=== PATIENT | female | born 1985 | race Caucasian/White ===

== ENCOUNTER 2018-01-07 17:22 | Emergency (ER) | END 2018-01-07 23:30 | disposition home or self-care (01) ==

== ENCOUNTER 2018-01-15 08:30 | Emergency (ER) | END 2018-01-15 12:41 | disposition home or self-care (01) ==

== ENCOUNTER 2018-03-12 15:33 | Emergency (ER) | END 2018-03-12 17:51 | disposition home or self-care (01) ==

== ENCOUNTER 2018-07-21 22:37 | Emergency (ER) | payer OTHER ==
[~2018-07-21] VITALS: Ht 167.6 cm; Wt 70.9 kg
[2018-07-21 22:46] VITALS: Ht 167.6 cm; Wt 70.9 kg
[2018-07-22] MEDS ORDERED: LORAZEPAM 2 MG INJ IM ONE (00:30)
--- NOTE | 2018-07-22 01:01 | ERD ---
ER Documentation Chief Complaint Chief Complaint withdrawing fr alcohol. last drink vodka 18hrs ago. HPI This is a very pleasant 32-year-old female withdrawing from alcohol. She said her last unremarkable 18 hours ago. Denies fevers chills nausea vomiting. Denies any auditory or visual hallucinations. Denies any other current issues. ROS All systems reviewed and are negative except as per history of present illness. Medications Home Meds No Active Prescriptions or Reported Meds Allergies Allergies: Coded Allergies: No Known Allergy (Unverified , 07/21/18) PMhx/Soc History of Surgery: Yes (CAUDA EQUINA SURGERY (02/2018)) Anesthesia Reaction: No Hx Neurological Disorder: Yes (SEIZURES) Hx Miscellaneous Medical Probl: Yes (ETOH ABUSE) Hx Alcohol Use: Yes (12beers/day [id number]; RECENT USE 12HRS AGO (07/21/18)) Hx Substance Use: Yes (cocaine 07/20/18) Hx Tobacco Use: Yes (5 cigs/ day) Smoking Status: Current every day smoker Physical Exam Vitals Vital Signs Date Temp Pulse Resp B/P (MAP) Pulse Ox O2 O2 Flow FiO2 Time Delivery Rate 07/21/18 98.0 116 20 166/92 98 22:46 (116) Physical Exam Const: No acute distress Head: Atraumatic Eyes: Normal Conjunctiva ENT: Normal External Ears, Nose and Mouth. Neck: Full range of motion. No meningismus. Resp: Clear to auscultation bilaterally Cardio: Regular rate and rhythm, no murmurs Abd: Soft, non tender, non distended. Normal bowel sounds Skin: No petechiae or rashes Back: No midline or flank tenderness Ext: No cyanosis, or edema Neur: Awake and alert Psych: Normal Mood and Affect Results 24 hrs Current Medications Medications Dose Sig/Piotr Start Time Status Last (Trade) Ordered Route PRN Stop Time Admin Dose Reason Admin Lorazepam 2 mg ONCE ONCE 07/22/18 DC 07/22/18 (Ativan) IM 00:30 07/22/18 00:18 00:31 Procedures/MDM Medical decision makin female with alcohol withdrawal. Treated with Ativan with good response. Patient is following up with [facility] tomorrow. At this point she is currently stable for outpatient management. Departure Diagnosis: Primary Impression: Alcohol withdrawal syndrome Complication of substance-induced condition: with unspecified complication Qualified Codes: F10.239 - Alcohol dependence with withdrawal, unspecified Condition: Stable Patient Instructions: Alcohol Withdrawal ERYN DE SOUZA Jul 22, 2018 01:01
[2018-07-22 02:53] VITALS: BP 92/58; PULSE 85; RESP 16
== END 2018-07-22 04:05 | disposition home or self-care (01) ==
LOC: E/R 22:37
DX: F10.239 Alcohol dependence with withdrawal, unspecified (principal); F17.210 Nicotine dependence, cigarettes, uncomplicated
CPT/HCPCS: 96372; J2060; Z7502

== ENCOUNTER 2018-12-04 14:29 | Emergency (ER) | payer OTHER ==
[~2018-12-04] VITALS: Wt 71.4 kg
[2018-12-04 14:33] VITALS: BP 118/70; PULSE 102; RESP 20
[2018-12-04] MEDS ORDERED: HYDROCODONE/APAP (5/325) TAB PO ONE (16:00)
[2018-12-04] MEDS ORDERED: morphine 4 MG/ML VIAL IM STA (16:31)
[2018-12-04] MEDS ORDERED: ONDANSETRON (ODT) 4 MG TAB ODT STA (17:49)
[2018-12-04] MEDS ORDERED: CYCL10TA7 PO (18:07)
[2018-12-04] MEDS ORDERED: NAPR-985 PO (18:07)
--- NOTE | 2018-12-04 20:16 | ERD ---
ER Documentation Chief Complaint Chief Complaint LOW BACK PAIN RADIATING TO RIGHT LEG FOR A FEW DAYS NO TRAUMA. CHRONIC HPI 33-year-old female with past medical history of cauda equina presenting to the emergency department with complaints of severe right-sided low back pain with radiation down her right leg which began after lifting a heavy object earlier today. She also reports 2 episodes of bladder incontinence. Pain is rated 10/10 in severity. She took no medication for relief of symptoms. Her pain is worse with walking. She states her symptoms feel similar to when she was diagnosed with cauda equina in the past. She denies any fevers, chills, or other symptoms at this time. ROS All systems reviewed and are negative except as per history of present illness. Medications Home Meds Active Scripts Cyclobenzaprine Hcl* (Cyclobenzaprine Hcl*) 10 Mg Tablet, 10 MG PO TID, #15 TAB Prov:ERYN MCKENZIE PA-C 12/04/18 Naproxen* (Naprosyn*) 500 Mg Tablet, 500 MG PO BID PRN for PAIN AND/OR IN FLAMMATION, #30 TAB Prov:ERYN MCKENZIE PA-C 12/04/18 Allergies Allergies: Coded Allergies: No Known Allergy (Unverified , 07/21/18) PMhx/Soc History of Surgery: Yes (CAUDA EQUINA SURGERY (02/2018)) Anesthesia Reaction: No Hx Neurological Disorder: Yes (SEIZURES) Hx Miscellaneous Medical Probl: Yes (ETOH ABUSE) Hx Alcohol Use: Yes (12beers/day [id number]; RECENT USE 12HRS AGO (07/21/18)) Hx Substance Use: Yes (cocaine 07/20/18) Hx Tobacco Use: Yes (5 cigs/ day) Smoking Status: Current every day smoker FmHx Family History: No diabetes Physical Exam Vitals Vital Signs Date Temp Pulse Resp B/P (MAP) Pulse Ox O2 O2 Flow FiO2 Time Delivery Rate 12/04/18 97.6 102 20 118/70 98 14:33 (86) Physical Exam Const: No acute distress Head: Atraumatic Eyes: Normal Conjunctiva ENT: Normal External Ears, Nose and Mouth. Neck: Full range of motion. No meningismus. Resp: Clear to auscultation bilaterally Cardio: Regular rate and rhythm, no murmurs Skin: No petechiae or rashes Back: . Tenderness palpation of the paraspinal muscles of the lumbar spine on the right. Ext: No cyanosis, or edema. Patient is neurovascularly intact to bilateral lower extremities. Neur: Awake and alert Psych: Normal Mood and Affect Results 24 hrs Current Medications Medications Dose Sig/Piotr Start Time Status Last (Trade) Ordered Route PRN Stop Time Admin Dose Reason Admin 1 tab ONCE ONCE 12/04/18 DC 12/04/18 Acetaminophen PO 16:00 16:00 / 12/04/18 16:01 Hydrocodone Bitart (Newhall (5/325)) Morphine 4 mg ONCE STAT 12/04/18 DC 12/04/18 Sulfate IM 16:31 16:36 (morphine) 12/04/18 16:33 Ondansetron 4 mg ONCE STAT 12/04/18 DC 12/04/18 HCl (Zofran ODT 17:49 17:52 Odt) 12/04/18 17:50 [place] [id number] Radiology Main Line: [phone] DIAGNOSTIC IMAGING REPORT Patient: SOPHIA HERMAN : 1985 Age: 33 Sex: F MR #: [id number] DOS: 12/04/18 0000 Ordering MD: ERYN MCKENZIE PA-C Location: [facility] Room/Bed: PROCEDURE: MRI OF THE LUMBAR SPINE. CLINICAL INDICATION: Evaluate cauda equina syndrome. Low back pain with lower extremity weakness and bladder incontinence. TECHNIQUE: Multiple MRI images were obtained utilizing multiple sequences in sagittal and axial planes. Images were interpreted on high-resolution PACS system. No contrast was administered. COMPARISON: CT from 11/08/2018 and MRI from 10/24/2017 FINDINGS: The vertebral bodies maintain normal height. There are no acute fractures. Bone marrow signal is within normal limits. Alignment is unchanged. There is a transitional L5 vertebral body with partial sacralization on the left. The conus ends at the T12 level. The distal cord is normal in signal and caliber. There is no evidence of arachnoiditis. Paraspinal musculature is unremarkable. T11-L3: Normal disc height and signal. No annular bulge, central canal narrowing, or neural foraminal narrowing. L3-L4: Mild loss of disc height with disc desiccation. Minimal retrolisthesis. Small broad 3 - 4 mm central disc protrusion slightly decreased from the prior MRI previously measuring about 5 mm with slight narrowing of the bilateral recesses and mild central canal narrowing. No neural foraminal narrowing. L4-L5: Moderate to severe loss of disc height with disc desiccation and type 1 endplate changes on the right with increased disc height loss from the prior MRI. Minimal retrolisthesis. There has been a right laminotomy with a broad 3-4 mm disc protrusion with a small focus of bright T2 signal within the right paracentral to posterolateral disc which may be from granulation tissue/scarring with resolution of the right lateral recess narrowing without central canal narrowing post posterior decompression. Small posterior disc osteophytes are better visualized on the prior CT. Mild bilateral neural foraminal narrowing. Mild bilateral facet arthropathy with a right facet joint effusion. L5-S1: Normal disc height and signal. Minimal annular bulge with mild congenital narrowing of the central canal. No neural foraminal narrowing. RPTAT: ZZ IMPRESSION: 1. Post right laminotomy at L4-L5 with a broad 3 - 4 mm disc protrusion with a small focus of granulation tissue/scarring within the right paracentral to posterolateral disc with resolution of the right lateral recess narrowing compared to the preoperative MRI without central canal narrowing. 2. Moderate to severe degenerative disc disease at L4-L5 slightly increased from the preoperative MRI with mild type 1 endplate changes on the right. 3. Slight decrease in size of the small broad 3-4 mm central disc protrusion at L3-L4 with mild central canal narrowing and mild degenerative disc disease. .Lidia Tom MD, MD Date Time Electronically viewed and signed by .Lidia Tom MD, MD on 12/04/2018 18:03 .T/ CC: ERYN MCKENZIE PA-C [id number] Procedures/MDM 33-year-old female presenting to the emergency department complaining of severe low back pain and urinary incontinence. Patient was administered Newhall in the department with no relief of her symptoms and so 4 mg IM morphine was given. On reevaluation she was improved. She does have history of cauda equina, And stated that her symptoms feel similar to when she was diagnosed with this in the past. Given her physical examination and provided history, I did discuss the case with attending ED physician, Dr. Ryan Degroot, who agreed with the ED course and recommended MRI of the lumbar spine. Lumbar spine was ordered and results were not consistent with cauda equina. Full report interpreted by the radiologist may be viewed above. Decision was made to discharge the patient home with strict ER return precautions. Patient's musculoskeletal symptoms have stabilized while they have been evaluated in the department and are appropriate for outpatient work up. No evidence of cauda equina, cord compression, infiltrative, or infectious etiology. Departure Diagnosis: Primary Impression: Back pain Back pain location: low back pain Chronicity: acute Back pain laterality: right Sciatica presence: unspecified whether sciatica present Qualified Codes: M54.5 - Low back pain Condition: Fair Patient Instructions: Back Pain (Acute Or Chronic) Referrals: [facility] YOU HAVE RECEIVED A MEDICAL SCREENING EXAM AND THE RESULTS INDICATE THAT YOU DO NOT HAVE A CONDITION THAT REQUIRES URGENT TREATMENT IN THE EMERGENCY DEPARTMENT. FURTHER EVALUATION AND TREATMENT OF YOUR CONDITION CAN WAIT UNTIL YOU ARE SEEN IN YOUR DOCTORS OFFICE WITHIN THE NEXT 1-2 DAYS. IT IS YOUR RESPONSIBILITY TO MAKE AN APPOINTMENT FOR FOLOW-UP CARE. IF YOU HAVE A PRIMARY DOCTOR --you should call your primary doctor and schedule an appointment IF YOU DO NOT HAVE A PRIMARY DOCTOR YOU CAN CALL OUR PHYSICIAN REFERRAL HOTLINE AT IF YOU CAN NOT AFFORD TO SEE A PHYSICIAN YOU CAN CHOSE FROM THE FOLLOWING [facility] [address] [facility]. [facility] [address] [facility] [facility] [address] [facility] [facility] [address] [facility]. [facility] [address] [facility]. [facility]. [address] [place] [address] Additional Instructions: Call your primary care doctor TOMORROW for an appointment during the next 1-2 days.See the doctor sooner or return here if your condition worsens before your appointment time. ERYN MCKENZIE PA-C December 04, 2018 20:16
== END 2018-12-04 18:16 | disposition home or self-care (01) ==
LOC: FTE 14:29
DX: M54.5 Low back pain (principal); F17.210 Nicotine dependence, cigarettes, uncomplicated
CPT/HCPCS: 72148; 96372; J2270; Z7502; Z7610

== ENCOUNTER 2018-12-19 02:10 | Emergency (ER) | payer OTHER ==
[~2018-12-19] VITALS: Ht 167.6 cm; Wt 73.6 kg
[~2018-12-19 02:10] MED LIST: CYCL10TA7 PO; NAPR-985 PO
[2018-12-19 02:14] VITALS: Ht 167.6 cm; Wt 73.6 kg
[2018-12-19] MEDS ORDERED: LORAZEPAM 2 MG INJ IV ONE ×2 (03:30)
[2018-12-19] MEDS ORDERED: KETOROLAC 30 MG INJ IV STA (03:38)
--- NOTE | 2018-12-19 03:39 | ERD ---
ER Documentation Chief Complaint Chief Complaint states having alcohol withdrawal. c/o being shakey HPI This is a 33-year-old female presents for evaluation of alcohol withdrawal. Patient states she has had this in the past, her last drink was about 6 hours ago, she feels shaky, she has no seizure activity, and has not had delirium tremens in the past. She denies nausea or vomiting, she does not have abdominal pain, no fever, no confusion. ROS All systems reviewed and are negative except as per history of present illness. Medications Home Meds Active Scripts Cyclobenzaprine Hcl* (Cyclobenzaprine Hcl*) 10 Mg Tablet, 10 MG PO TID, #15 TAB Prov:ERYN MCKENZIE PA-C 12/04/18 Naproxen* (Naprosyn*) 500 Mg Tablet, 500 MG PO BID PRN for PAIN AND/OR INFLAMMATION, #30 TAB Prov:ERYN MCKENZIE PA-C 12/04/18 Allergies Allergies: Coded Allergies: No Known Allergy (Unverified , 12/19/18) PMhx/Soc History of Surgery: Yes (CAUDA EQUINA SURGERY (02/2018)) Anesthesia Reaction: No Hx Neurological Disorder: Yes (SEIZURES) Hx Miscellaneous Medical Probl: Yes (ETOH ABUSE) Hx Alcohol Use: Yes (12beers/day [id number]) Hx Substance Use: Yes (cocaine ) Hx Tobacco Use: Yes Smoking Status: Never smoker Physical Exam Vitals Vital Signs Date Temp Pulse Resp B/P (MAP) Pulse Ox O2 O2 Flow FiO2 Time Delivery Rate 12/19/18 117 24 107/69 97 Room Air 02:36 (82) 12/19/18 98.3 125 20 134/79 99 02:14 (97) Physical Exam Const: Tremulous, anxious appearing Head: Atraumatic Eyes: Normal Conjunctiva ENT: Normal External Ears, Nose and Mouth. Neck: Full range of motion. No meningismus. Resp: Clear to auscultation bilaterally Cardio: Regular rate and rhythm, no murmurs Abd: Soft, non tender, non distended. Normal bowel sounds Skin: No petechiae or rashes Back: No midline or flank tenderness Ext: No cyanosis, or edema Neur: Awake and alert Psych: Normal Mood and Affect Results 24 hrs Laboratory Tests Test 12/19/18 03:34 Bedside Glucose 81 mg/dL Current Medications Medications Dose Sig/Piotr Start Time Status Last (Trade) Ordered Route PRN Stop Time Admin Dose Reason Admin Lorazepam 1 mg ONCE ONCE 12/19/18 DC 12/19/18 (Ativan) IV 03:30 12/19/18 03:20 03:31 Lorazepam 1 mg ONCE ONCE 12/19/18 DC (Ativan) IV 03:30 12/19/18 03:31 50 mg ONCE ONCE 12/19/18 DC 12/19/18 Chlordiazepox PO 04:00 12/19/18 03:38 zachary 04:01 (Librium) Ketorolac 30 mg ONCE STAT 12/19/18 DC 12/19/18 Tromethamine IV 03:38 12/19/18 03:50 (Toradol) 03:39 Ondansetron 4 mg ONCE ONCE 12/19/18 DC 12/19/18 HCl (Zofran IV 04:00 12/19/18 04:04 Inj) 04:01 Procedures/MDM 33-year-old female presents for alcohol withdrawal. On exam she has no fever, no peritoneal signs, no evidence of altered mental state, she will be treated with benzodiazepines and reassess. Patient reassessed, she feels significantly better, will discharge with prescription for Librium, at discharge patient was in no distress. Departure Diagnosis: Primary Impression: Alcohol withdrawal syndrome Complication of substance-induced condition: uncomplicated Qualified Codes: F10.230 - Alcohol dependence with withdrawal, uncomplicated Condition: Stable TAY VILLEGAS MD Dec 19, 2018 03:39
[2018-12-19] MEDS ORDERED: CHLORDIAZEPOXIDE 25 MG CAP PO ONE (04:00)
[2018-12-19] MEDS ORDERED: ONDANSETRON 4 MG INJ IV ONE (04:00)
[2018-12-19 04:30] VITALS: BP 101/81; PULSE 109; RESP 12
[2018-12-19] MEDS ORDERED: CHLO25CA9 PO (04:37)
== END 2018-12-19 04:43 | disposition home or self-care (01) ==
LOC: E/R 02:10
DX: F10.230 Alcohol dependence with withdrawal, uncomplicated (principal); Z87.891 Personal history of nicotine dependence
CPT/HCPCS: 82962; 96374; 96375; J1885; J2060; J2405; Z7502; Z7610

== ENCOUNTER 2018-12-25 20:33 | Emergency (ER) | payer OTHER ==
[~2018-12-25] VITALS: Ht 167.6 cm; Wt 75.6 kg
[~2018-12-25 20:33] MED LIST changes: +CHLO25CA9 PO
[2018-12-25 20:35] VITALS: BP 120/59; PULSE 117; RESP 18; Ht 167.6 cm; Wt 75.6 kg
[2018-12-25] MEDS ORDERED: LORAZEPAM 1 MG TAB PO ONE (23:00)
[2018-12-25] MEDS ORDERED: ONDANSETRON (ODT) 4 MG TAB ODT STA (23:16)
[2018-12-25] MEDS ORDERED: IBUPROFEN 800 MG TAB PO ONE (23:30)
[2018-12-25] MEDS ORDERED: FAMOTIDINE 20 MG TAB PO ONE (23:30)
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
[2018-12-26] MEDS ORDERED: CHLO25CA9 PO (00:14)
== END 2018-12-26 00:41 | disposition home or self-care (01) ==
LOC: E/R 20:33
DX: F10.10 Alcohol abuse, uncomplicated (principal); F17.210 Nicotine dependence, cigarettes, uncomplicated
CPT/HCPCS: 80053; 80307; 83690; 85025; Z7502; Z7610; 99283

== ENCOUNTER 2019-02-01 13:54 | Emergency (ER) | payer OTHER ==
[~2019-02-01] VITALS: Ht 157.5 cm; Wt 66.0 kg
[2019-02-01 14:10] VITALS: Ht 157.5 cm; Wt 66.0 kg
--- NOTE | 2019-02-01 14:13 | EN ---
Date/Time of Note Date/Time of Note DATE: 02/01/19 TIME: 14:11 ER Progress Note [id number]old female with history of alcohol abuse and alcohol withdrawal seizures last being 2 approximately weeks ago. Complains of shakiness and withdrawal symptoms. Last EtOH 6 hours ago. MAYTE IGLESIAS MD Feb 01, 2019 14:13
[2019-02-01] MEDS ORDERED: SOD CHLORIDE 0.9% 1,000 ML IV STA ×2 (14:37→15:18)
[2019-02-01] MEDS ORDERED: LORAZEPAM 2 MG INJ IV ONE ×2 (15:00→15:30)
[2019-02-01] MEDS ORDERED: KETOROLAC 30 MG INJ IV STA (15:18)
[2019-02-01] MEDS ORDERED: CHLORDIAZEPOXIDE 25 MG CAP PO ONE (15:30)
[2019-02-01] MEDS ORDERED: CHLO25CA9 PO (16:48)
--- NOTE | 2019-02-01 17:49 | ERD ---
ER Documentation Chief Complaint Chief Complaint FEELING SHAKY , TACHYCARDIAC , LAST DRINK X 6 HRS AGO HPI 33-year-old female with a history of alcoholism presenting with complaints of withdrawal symptoms. She states that she feels very shaky and can feel her heart beating rapidly. Her last drink was about 6 hours prior to arrival. She did come here on a prior visit and received Librium. She states that after she finished the Librium, she went back to drinking. She has a plan to go to [facility] tomorrow to inquire about detox. She has an appointment scheduled. She is denying any hallucinations or seizures. 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 No fevers, chills, nausea, vomiting. ROS All systems reviewed and are negative except as per history of present illness. Medications Home Meds Active Scripts Chlordiazepoxide* (Chlordiazepoxide*) 25 Mg Capsule, 25 MG PO Q8 PRN for CONTROL WITHDRAWAL SYMPTOMS, #10 CAP Prov:MILENA DIAS MD 02/01/19 Chlordiazepoxide* (Chlordiazepoxide*) 25 Mg Capsule, 25 MG PO Q8 PRN for AGITATION/ANXIETY, #10 CAP Prov:BRENDAN ESPINAL DO 12/26/18 Chlordiazepoxide* (Chlordiazepoxide*) 25 Mg Capsule, 25 MG PO Q8 PRN for CONTROL WITHDRAWAL SYMPTOMS, #15 CAP Prov:TAY VILLEGAS MD 12/19/18 Cyclobenzaprine Hcl* (Cyclobenzaprine Hcl*) 10 Mg Tablet, 10 MG PO TID, #15 TAB Prov:ERYN MCKENZIE PA-C 12/04/18 Naproxen* (Naprosyn*) 500 Mg Tablet, 500 MG PO BID PRN for PAIN AND/OR INFLAMMATION, #30 TAB Prov:ERYN MCKENZIE PA-C 12/04/18 Allergies Allergies: Coded Allergies: No Known Allergy (Unverified , 12/19/18) PMhx/Soc History of Surgery: Yes (CAUDA EQUINA SURGERY (02/2018)) Anesthesia Reaction: No Hx Neurological Disorder: Yes (SEIZURES) Hx Respiratory Disorders: No Hx Cardiac Disorders: No Hx Psychiatric Problems: No Hx Miscellaneous Medical Probl: Yes (ETOH ABUSE) Hx Alcohol Use: Yes (12beers/day [id number], "MORE THAN 1/5 A DAY") Hx Substance Use: Yes (cocaine ) Hx Tobacco Use: Yes Smoking Status: Current every day smoker FmHx Family History: No diabetes Physical Exam Vitals Vital Signs Date Temp Pulse Resp B/P (MAP) Pulse Ox O2 O2 Flow FiO2 Time Delivery Rate 02/01/19 98.0 147 18 136/73 98 14:10 (94) Physical Exam Const: Nontoxic. appears very shaky Head: Atraumatic Eyes: Normal Conjunctiva ENT: Normal External Ears, Nose and Mouth. Neck: Full range of motion. No meningismus. Resp: Clear to auscultation bilaterally Cardio: Tachycardic with regular rhythm, no murmurs Abd: Soft, non tender, non distended. Normal bowel sounds Skin: No petechiae or rashes Back: No midline or flank tenderness Ext: No cyanosis, or edema Neur: Awake and alert, oriented x3, normal speech, strength and sensations intact in all 4 extremities Psych: Normal Mood and Affect Result Diagram: 02/01/19 1442 02/01/19 1442 Results 24 hrs Laboratory Tests Test 02/01/19 14:42 02/01/19 15:35 02/01/19 15:41 White Blood Count 4.8 10^3/ul Red Blood Count 3.98 10^6/ul Hemoglobin 12.6 g/dl Hematocrit 37.5 % Mean Corpuscular Volume 94.2 fl Mean Corpuscular Hemoglobin 31.7 pg Mean Corpuscular 33.6 g/dl Hemoglobin Concent Red Cell Distribution Width 13.3 % Platelet Count 217 10^3/UL Mean Platelet Volume 10.9 fl Immature Granulocytes % 0.200 % Neutrophils % 47.3 % Lymphocytes % 42.3 % Monocytes % 9.2 % Eosinophils % 0.2 % Basophils % 0.8 % Nucleated Red Blood Cells % 0.0 /100WBC Immature Granulocytes # 0.010 10^3/ul Neutrophils # 2.3 10^3/ul Lymphocytes # 2.0 10^3/ul Monocytes # 0.4 10^3/ul Eosinophils # 0.0 10^3/ul Basophils # 0.0 10^3/ul Nucleated Red Blood Cells # 0.0 10^3/ul Sodium Level 140 mmol/L Potassium Level 3.8 mmol/L Chloride Level 105 mmol/L Carbon Dioxide Level 19 mmol/L Anion Gap 16 Blood Urea Nitrogen 9 mg/dl Creatinine 0.69 mg/dl Est Glomerular Filtrat > 60 mL/min Rate mL/min Glucose Level 101 mg/dl Calcium Level 9.3 mg/dl Total Bilirubin 0.2 mg/dl Direct Bilirubin 0.00 mg/dl Indirect Bilirubin 0.2 mg/dl Aspartate Amino 39 IU/L Transf (AST/SGOT) Alanine 74 IU/L Aminotransferase (ALT/SGPT) Alkaline Phosphatase 72 IU/L Total Protein 7.9 g/dl Albumin 4.5 g/dl Globulin 3.40 g/dl Albumin/Globulin Ratio 1.32 Lipase 115 U/L Serum HCG, Qualitative NEGATIVE Urine Color YELLOW Urine Clarity SLIGHTLY CLOUDY Urine pH 5.0 Urine Specific [place] 1.010 Urine Ketones NEGATIVE mg/dL Urine Nitrite NEGATIVE mg/dL Urine Bilirubin NEGATIVE mg/dL Urine Urobilinogen NEGATIVE mg/dL Urine Leukocyte Esterase NEGATIVE Monica/ul Urine Microscopic RBC 0 /HPF Urine Microscopic WBC 2 /HPF Urine Squamous Epithelial Cells FEW /HPF Urine Mucus FEW /HPF Urine Hemoglobin NEGATIVE mg/dL Urine Glucose NEGATIVE mg/dL Urine Total Protein NEGATIVE mg/dl POC Beta HCG, Qualitative NEGATIVE Current Medications Medications Dose Sig/Piotr Start Time Status Last (Trade) Ordered Route PRN Stop Time Admin Dose Reason Admin Sodium 1,000 ml @ Q1H STAT 02/01/19 DC 02/01/19 Chloride 1,000 mls/hr IV 14:37 14:46 02/01/19 15:36 Lorazepam 2 mg ONCE ONCE 02/01/19 DC 02/01/19 (Ativan) IV 15:00 14:46 02/01/19 15:01 50 mg ONCE ONCE 02/01/19 DC 02/01/19 Chlordiazepox PO 15:30 15:37 zachary 02/01/19 15:31 (Librium) Lorazepam 2 mg ONCE ONCE 02/01/19 DC 02/01/19 (Ativan) IV 15:30 15:37 02/01/19 15:31 Ketorolac 30 mg ONCE STAT 02/01/19 DC 02/01/19 Tromethamine IV 15:18 15:37 (Toradol) 02/01/19 15:19 Sodium 1,000 ml @ Q1H STAT 02/01/19 DC 02/01/19 Chloride 1,000 mls/hr IV 15:18 15:37 7/16/19 16:17 Procedures/MDM EMERGENT LABS AND DIAGNOSTIC STUDIES: Lab Results above were reviewed and interpreted by me. CBC: no anemia or evidence of infection CMP: No evidence of clinically significant electrolyte abnormality, acidosis, renal failure, hypoglycemia, liver disease, or biliary obstruction UA: no evidence of infection 12-lead EKG was interpreted by Aniyah Dias MD: Sinus tachycardia at 131 bpm Rightward axis Normal intervals No acute ST or T wave changes suggestive of acute ischemia or STEMI. Initial Nursing notes reviewed. Previous Medical Records requested via the Electronic Health Record. EMERGENCY DEPARTMENT COURSE / MEDICAL DECISION MAKING: Patient is suffering from most likely alcohol withdrawal symptom without any evidence of delirium or seizure-like activity. She was treated with IV fluids and IV Ativan with improvement of her symptoms. She was also given oral dose of Librium. Upon reevaluation, her tachycardia has significantly improved. I have a low suspicion for sepsis. I feel the patient is appropriate for continued outpatient management. Prescription for Librium will be given. She has an appointment tomorrow at the [facility]. She was encouraged to return for any worsening symptoms. Patient's blood pressure was elevated (>120/80) but appears stable without evidence of hypertensive emergency or urgency. The patient was counseled about the risks of hypertension and urged to pursue outpatient monitoring and therapy within a week with their primary care physician. Departure Diagnosis: Primary Impression: Alcohol withdrawal syndrome Complication of substance-induced condition: uncomplicated Qualified Codes: F10.230 - Alcohol dependence with withdrawal, uncomplicated Condition: Stable Patient Instructions: Alcohol Withdrawal Referrals: SANTANA PETERSEN (PCP) [facility] Additional Instructions: Follow-up at the [facility] as planned for tomorrow. Return to the ER if you are having any worsening symptoms including hallucinations or sei zurMILENA Mccormick MD Feb 01, 2019 17:03
[2019-02-01 17:55] VITALS: BP 101/60; PULSE 105; RESP 18
== END 2019-02-01 18:18 | disposition home or self-care (01) ==
LOC: E/R 13:54
DX: F10.230 Alcohol dependence with withdrawal, uncomplicated (principal); F17.210 Nicotine dependence, cigarettes, uncomplicated
CPT/HCPCS: 80053; 81001; 81025; 83690; 84703; 85025; 93005; J1885; J2060; J7030; Z7610; 36415; 81003; 96374; 96375; 96376